=== PATIENT | female | born 1935 | race Caucasian/White ===

== ENCOUNTER 2021-06-06 07:06 | Day surgery (SDC) | payer MEDICARE ==
[2021-06-06] MEDS ORDERED: Propofol 200 MG/20 ML SDV ONE (07:17)
[2021-06-06] MEDS ORDERED: fentaNYL 100 MCG/2 ML SDV ONE (07:18)
[2021-06-06] MEDS ORDERED: Sodium Chloride 0.9% 1,000 ML IV SCH (07:30)
--- NOTE | 2021-06-06 13:02 | OR ---
DATE OF PROCEDURE: 06/06/2021 SURGEON: Sameer Rea MD PROCEDURE PERFORMED: Colonoscopy. FINDINGS: 1. Diverticulosis, extensive, and most densely concentrated in the sigmoid colon. 2. Sigmoid colon polyp, approximately 5 mm, completely removed using cold biopsy forceps. COMPLICATIONS: None. IMPORTER EXPORTER: None. PREOPERATIVE DIAGNOSIS: Positive Cologuard. POSTOPERATIVE DIAGNOSIS: Positive Cologuard. RISKS: Risks, benefits, alternatives, and limitations including, but not limited to infection, bleeding, perforation, false positives, and false negatives were explained to the patient. They wished to proceed. PROCEDURE IN DETAIL: The patient was placed in the left lateral decubitus position. Digital rectal exam was performed without abnormality. The scope was introduced and advanced atraumatically to the ileocecal valve. The scope was brought back to the ascending, transverse, descending colon, and retroflexed. No evidence of old or new blood. No masses. The patient did have a significantly tortuous sigmoid colon. Diverticulosis was part of this and throughout the entire colon. No abnormalities on retroflex. Greater than 8 minutes was spent removing the scope. Prep was marginal. Approximately 90% of the luminal surface could be seen with a moderate amount of solid and liquid stool remaining. Suction irrigation techniques were used to improve this. The patient tolerated the procedure well. Sameer Rea MD /[id number]
== END 2021-06-06 10:05 | disposition home or self-care (01) ==
LOC: JP.SDS 07:06
PROVIDERS: ATTEND Surgery
DX: K63.5 Polyp of colon (principal); K57.30 Diverticulosis of large intestine without perforation or abscess without bleeding; Z88.5 Allergy status to narcotic agent
CPT/HCPCS: 45380; J2704; J3010; J7030